=== PATIENT | female | born 1995 | race Hispanic/Latino ===

== ENCOUNTER 2018-06-20 11:10 | Emergency (ER) | payer SELFPAY ==
[~2018-06-20] VITALS: Ht 167.6 cm; Wt 54.5 kg
[2018-06-20] MEDS ORDERED: KEFLEX500 M1 PO (13:22)
[2018-06-20] MEDS ORDERED: BACTRIM DS1 TAB PO (13:22)
[2018-06-20 13:30] VITALS: BP 113/71
== END 2018-06-20 13:30 | disposition home or self-care (01) | DRG 603 ==
LOC: ED 11:10
PROC: 0H98XZZ Drainage of Buttock Skin, External Approach (ICD-10-PCS; principal; 2018-06-20)
DX: L02.31 Cutaneous abscess of buttock (principal); B95.7 Other staphylococcus as the cause of diseases classified elsewhere

== ENCOUNTER 2018-06-22 10:23 | Emergency (ER) | payer SELFPAY ==
[~2018-06-22] VITALS: Ht 167.6 cm; Wt 57.0 kg
[~2018-06-22 10:23] MED LIST: BACTRIM DS1 TAB PO; KEFLEX500 M1 PO
[2018-06-22 11:28] VITALS: BP 105/71
== END 2018-06-22 11:36 | disposition home or self-care (01) | DRG 951 ==
LOC: ED 10:23
DX: Z48.01 Encounter for change or removal of surgical wound dressing (principal)

== ENCOUNTER 2018-09-18 22:40 | Emergency (ER) | payer BC ==
[~2018-09-18] VITALS: Ht 167.6 cm; Wt 64.0 kg
[2018-09-18 23:09] LABS: HEMATOCRIT 37.3 % (37.0-47.0); HEMOGLOBIN 11.4 g/dl (12.0-16.0); IMMATURE GRANULOCYTES 0.2 % (0.0-5.0); MEAN CELL VOLUME 82.5 fL CALC (80.0-100.0); MEAN CORPUSCULAR HGB 25.2 pG CALC (26.0-32.0); MEAN CORPUSCULAR HGB CONC 30.6 g/L CALC (32.0-36.0); NEUT# 2.26 thou/uL (2.00-7.15); RED BLOOD COUNT 4.52 mill/uL (4.20-5.60); RED CELL DISTRI WIDTH 14.1 % (11.5-15.5)
[2018-09-18 23:30] LABS: ALBUMIN 4.5 g/dL (3.2-5.0); ALKALINE PHOSPHATASE 57 u/l (38-126); AMYLASE 36 u/l (30-110); ANION GAP 14 (6-22 (CALC)); BILIRUBIN, TOTAL 0.4 mg/dL (0.0-1.4); BUN 16 mg/dL (7-17); BUN/CREATININE RATIO 28 (12-20 (CALC)); CARBON DIOXIDE 27 mmol/l (22-30); CHLORIDE 104 mmol/l (95-108); CREATININE 0.6 mg/dL (0.5-1.0); GFR > 60 ML/MIN (>=60 (CALC)); GFR FOR AFR.AMER. > 60 ML/MIN (>=60 (CALC)); LIPASE 17 u/l (23-300); POTASSIUM 3.8 mmol/l (3.5-5.1); SGOT/AST 17 u/l (14-36); SODIUM 141 mmol/l (137-146); TOTAL PROTEIN 7.6 g/dL (6.3-8.2)
[2018-09-18 23:47] LABS: URINE BILIRUBIN - DIPSTICK NEGATIVE (NEGATIVE); URINE BLOOD DIPSTICK NEGATIVE (NEGATIVE); URINE COLOR YELLOW; URINE GLUCOSE - DIPSTICK NEGATIVE (NEGATIVE); URINE KETONE 40 mg/dL (NEGATIVE); URINE LEUK ESTERASE TRACE (NEGATIVE); URINE NITRITE - DIPSTICK NEGATIVE (Negative); URINE PH 5.5 (4.5-8.0); URINE PROTEIN - DIPSTICK NEGATIVE (NEG-TRACE); URINE SPECIFIC GRAVITY >=1.030; URINE UROBILINOGEN - DIPSTICK 0.2 E.U./dL (0.2)
[2018-09-19] MEDS ORDERED: CODEINE/GUAIFEN1 SOL PO (00:15)
[2018-09-19 00:17] VITALS: BP 106/76
== END 2018-09-19 00:27 | disposition home or self-care (01) | DRG 153 ==
LOC: ED 22:40
PROVIDERS: Emergency Medicine
DX: J06.9 Acute upper respiratory infection, unspecified (principal)

== ENCOUNTER 2023-03-05 10:57 | Emergency (ER) | payer MEDICAID ==
[~2023-03-05] VITALS: Ht 167.6 cm; Wt 70.9 kg
[~2023-03-05 10:57] MED LIST changes: +CODEINE/GUAIFEN1 SOL PO
[2023-03-05 11:35] VITALS: BP 113/72
[2023-03-05 11:45] VITALS: BP 109/75
[2023-03-05 12:00] VITALS: BP 113/77
[2023-03-05] MEDS ORDERED: TRIAMCINOLON0.11 EX ×2 (12:03→12:22)
[2023-03-05] MEDS ORDERED: PREDNISONE10 MG PO ×3 (12:03→18:02)
[2023-03-05] MEDS ORDERED: KEFLEX500 MG PO ×2 (12:04→12:22)
[2023-03-05 12:15] VITALS: BP 105/71
[2023-03-05 12:30] VITALS: BP 107/78
[2023-03-05 12:45] VITALS: BP 108/74
== END 2023-03-05 13:00 | disposition home or self-care (01) ==
LOC: ED 10:57
DX: L40.9 Psoriasis, unspecified (principal)